=== PATIENT | male | born 1980 | race Caucasian/White ===

== ENCOUNTER 2016-09-12 19:27 | Inpatient (IN) | payer OTHER ==
[~2016-09-12] VITALS: Ht 188 cm; Wt 88.2 kg
[2016-09-12 20:58] LABS: HEMOGLOBIN 14.5 gm/dl (14.0-17.5); RED BLOOD COUNT 4.93 M/UL (4.20-5.50)
[2016-09-12 21:27] LABS: BUN/CREATININE RATIO 13 (0-10)
[2016-09-13] MEDS ORDERED: ZANTAC300 MG PO (03:30)
[2016-09-13] MEDS ORDERED: ZOFRAN4 MG PO (03:30)
[2016-09-13] MEDS ORDERED: PROTONIX40 MG PO (03:31)
[2016-09-13 05:27] LABS: HEMOGLOBIN 12.7 gm/dl (14.0-17.5); RED BLOOD COUNT 4.44 M/UL (4.20-5.50)
[2016-09-13 05:40] LABS: WHITE BLOOD COUNT 16.8 K/UL (4.5-11.0)
[2016-09-13 05:53] LABS: BUN/CREATININE RATIO 12 (0-10)
== END 2016-09-13 18:30 | disposition home or self-care (01) | DRG 552 ==
LOC: ER1 19:27 → ZEROF 23:40 → M/S 23:40
PROVIDERS: Emergency Medicine; ADMIT Internal Medicine
DX: M54.9 Dorsalgia, unspecified (principal); C88.4 Extranodal marginal zone B-cell lymphoma of mucosa-associated lymphoid tissue [MALT-lymphoma]; E87.2 Acidosis; R65.10 Systemic inflammatory response syndrome (SIRS) of non-infectious origin without acute organ dysfunction; E86.0 Dehydration; F17.210 Nicotine dependence, cigarettes, uncomplicated; R11.10 Vomiting, unspecified; D72.829 Elevated white blood cell count, unspecified; Z88.3 Allergy status to other anti-infective agents; Z88.5 Allergy status to narcotic agent; Z88.8 Allergy status to other drugs, medicaments and biological substances
CPT/HCPCS: 36415; 71010; 76705; 80053; 81001; 83605; 83690; 83735; 85025; 86140; 87040; 87086; 96374; 96375; 96376; 99285; J0696; J1885; J2270; J2405; J7050; Q9962